=== PATIENT | male | born 1990 | race Caucasian/White ===

== ENCOUNTER 2020-01-11 11:29 | Emergency (ER) | payer SELFPAY ==
[~2020-01-11] VITALS: Ht 167.6 cm; Wt 53.6 kg
[2020-01-11] MEDS ORDERED: IV NORMAL SALINE 1,000ML 1,000 ML IV ONE ×2 (11:45→14:00)
--- NOTE | 2020-01-11 11:47 | EKG ---
[address] [address] Test Date: 2020-01-11 Test Time: 11:34:20 Pat Name: ALDO MATTHEWS Department: Room: Gender: M Editor [employer]: FERNANDA : 1990 Requested By: JEANNE CANALES Order Number: [id number] Reading MD: Measurements Intervals [place] Rate: 73 P: 62 FL: 136 QRS: 57 QRSD: 100 T: 64 QT: 378 QTc: 420 Interpretive Statements SINUS RHYTHM R-S TRANSITION ZONE IN V LEADS DISPLACED TO THE RIGHT INCOMPLETE RIGHT BUNDLE BRANCH BLOCK OTHERWISE NORMAL ECG RI6.02 No previous ECG available for comparison
[2020-01-11 11:51] LABS: BASO % 1 % (0-3); EOS # 0.2 x10^3/uL (0.0-0.7); EOS % 3 % (0-3); HEMATOCRIT 49.5 % (39.0-53.0); LYMPH # 2.1 x10^3/uL (1.0-4.8); LYMPH % 45 % (24-48); MEAN CORPUSCULAR HEMOGLOBIN 31 pg (25-35); MEAN CORPUSCULAR HGB CONC 34 g/dL (31-37); MEAN CORPUSCULAR VOLUME 91 fL (79-100); MONO # 0.5 x10^3/uL (0.0-1.1); MONO % 12 % (0-9); NEUT # 1.8 x10^3uL (1.8-7.7); NEUT % 39 % (31-73); PLATELET COUNT 315 x10^3/uL (140-400); RED BLOOD COUNT 5.46 x10^6/uL (4.30-5.70); RED CELL DISTRIBUTION WIDTH 12.9 % (11.5-14.5); WHITE BLOOD COUNT 4.6 x10^3/uL (4.0-11.0)
--- NOTE | 2020-01-11 11:55 | PHYS DOC ---
Past History Past Medical History: Anxiety, Depression Past Medical History Limited secondary to overdose Past Surgical History: No Surgical History Past Surgical History Limited secondary to overdose Smoking: Cigarettes Alcohol Use: Heavy Drug Use: Heroin, Methamphetamine Social History Limited secondary to overdose General Adult EDM: Chief Complaint: SUICIDAL IDEATION HPI: HPI: Patient is a 29 year old male who presents with overdose symptoms. Reports suicide ideation by taking 4x Xanax bars, 7x Ambien 12.5mg this morning which he reports he took so that he "would go to sleep and not wake up". Reports he used methamphetamines and heroin last night. Reports inpatient psych admit last November for suicide attempt. Ex- called EMS due to patient being lethargic. Patient taking Zoloft and Trazodone. Reports he got the Ambien and Xanax off the street. Denies current alcohol use. Denies other ingestion. History of present illness limited secondary to overdose. Review of Systems: Review of Systems: Constitutional: Denies fever or chills Respiratory: Denies cough. Cardiovascular: Denies chest pain or palpitations GI: Denies abdominal pain, nausea, or vomiting Integument: Denies laceration Neurologic: Denies headache, focal weakness or sensory changes; reports sleepiness Review of systems limited secondary to overdose. Current Medications: Current Meds: Current Medications Medications (Trade) Dose Ordered Sig/[facility] Start Time Stop Time Status Last Admin Dose Admin Sodium Chloride 1,000 ml @ 1,000 mls/hr 1X ONCE 01/11/20 11:45 01/11/20 12:44 Allergies: Allergies: Allergies Coded Allergies Type Severity Reaction Last Updated Verified No Known Drug Allergies 01/11/20 No Physical Exam: PE: Constitutional: Patient in NAD, however, is obtunded. GCS 13. HENT: Normocephalic, atraumatic Eyes: Conjunctiva normal, no discharge Neck: Normal range of motion, no tenderness, supple Lungs & Thorax: No respiratory distress, equal chest rise and fall Abdomen: Soft, no tenderness Skin: Warm, dry, no erythema, no rash Back: No tenderness, no CVA tenderness Extremities: No tenderness, ROM intact, no edema Neurologic: Normal motor function, normal sensory function, no focal deficits noted. Psychologic: Patient obtunded. Current Patient Data: Vital Signs: Vital Signs Date Time Temp Pulse Resp B/P (MAP) Pulse Ox O2 Delivery O2 Flow Rate FiO2 12/2/20 11:32 97.6 77 14 130/96 (107) 98 Room Air EKG: EKG: @1134 sinus rhythm, incomplete right bundle branch block, QRS 100 ms, QT/QTc 378/420 ms. Course & Med Decision Making: Course & Med Decision Making Patient is a 29 year old male who presents with overdose symptoms. Reports suicide ideation by taking 4x 2mg Xanax, 7x 12.5mg Ambien this morning. Reports meth and heroin use last night. Reports psych admit last November for suicide attempt Ex- called EMS due to patient being lethargic. VS stable. Labs obtained and posted to chart. Hypoglycemia noted with initial blood draw. Repeat glucose with improvement. EKG stable. Contacted Poison Control and instructed to provide supportive care. Baseline expected after 12 hours due to Xanax intake. Pertinent Labs and Imaging studies reviewed. (See chart for details) Patient subsequently became agitated and verbal with staff. Reports he was leaving because "he needed to get to work" at [facility]. IV was removed by patient. Patient could not be redirected and walked with steady gait past staff that attempted to prevent patient from leaving. Unable to redirect patient. Police notified that suicidal patient had eloped from ED. Dragon Disclaimer: [employer] Disclaimer: This electronic medical record was generated, in whole or in part, using a voice recognition dictation system. Departure Departure: Impression: Primary Impression: Overdose Qualified Codes: T50.902A - Poisoning by unspecified drugs, medicaments and biological substances, intentional self-harm, initial encounter Additional Impressions: Eloped from emergency department Suicidal intent Hypoglycemia Disposition: AMA/ELOPED/LWBS Condition: GUARDED Referrals: PCP,NO (PCP) Critical Care Time Critical care time was 30 minutes which includes time at bedside, spent in discussion of patient's care with specialists and/or family members, with interpretation of laboratory and/or radiological studies and is exclusive of procedures. JEANNE CANALES DO Jan 11, 2020 11:55
[2020-01-11 12:07] LABS: CALCIUM 8.8 mg/dL (8.5-10.1); GFR 89.6; POTASSIUM 3.1 mmol/L (3.5-5.1)
[2020-01-11 12:19] LABS: ALBUMIN 4.2 g/dL (3.4-5.0); ALBUMIN/GLOBULIN RATIO 1.2 (1.0-1.7); MAGNESIUM 2.4 mg/dL (1.8-2.4); TOTAL BILIRUBIN 0.6 mg/dL (0.2-1.0); TOTAL PROTEIN 7.6 g/dL (6.4-8.2)
[2020-01-11 13:19] LABS: ACETAMIN < 2 mcg/mL (10-30); SALIC < 2.8 mg/dL (2.8-20.0)
[2020-01-11 15:22] VITALS: BP 116/76
[2020-01-11] MEDS ORDERED: POTASSIUM CHLORIDE 20 MEQ TABLET.ER. PO ONE (16:15)
[2020-01-11] MEDS ORDERED: IV DEXTROSE 5 %-0.45 % NACL 1,000 ML IV SCH (16:30)
== END 2020-01-11 17:20 | disposition left against medical advice (07) ==
LOC: ER 11:29
DX: R45.851 Suicidal ideations (principal); T43.621A Poisoning by amphetamines, accidental (unintentional), initial encounter; E16.2 Hypoglycemia, unspecified; F41.9 Anxiety disorder, unspecified; F32.9 Major depressive disorder, single episode, unspecified; F17.210 Nicotine dependence, cigarettes, uncomplicated; F19.90 Other psychoactive substance use, unspecified, uncomplicated; F10.10 Alcohol abuse, uncomplicated; Y92.89 Other specified places as the place of occurrence of the external cause
CPT/HCPCS: 36415; 80053; 80329; 82550; 82947; 83605; 83735; 85025; 85610; 85730; 93005; 99285; G0480; J7030

== ENCOUNTER 2020-09-22 16:58 | Emergency (ER) | payer SELFPAY ==
[~2020-09-22] VITALS: Ht 170.2 cm; Wt 63.6 kg
[2020-09-22 17:26] VITALS: BP 135/95
--- NOTE | 2020-09-22 17:39 | RAD ---
Exam: CT head and maxillofacial without contrast INDICATION: Trauma TECHNIQUE: Sequential axial images through the head and face were obtained without the administration of IV contrast. Exposure: One or more of the following in the visualized dose reduction techniques were utilized for this examination: 1. Automated exposure control 2. Adjustment of the MA and/or KV according to patient size 3. Use of iterative of reconstructive technique Comparisons: None FINDINGS: No focal parenchymal lesion or hemorrhage is identified. There is no midline shift or sulcal effaceme nt. No acute vascular territory infarction is identified. Webb-white distinction is preserved. The ventricular system is within normal limits without compression hydrocephalus. The basal cisterns are well maintained. Face: Extra cranial soft tissue scalp contusion overlying the left posterior parietal region. The visualize d portions of the paranasal sinuses and mastoid air cells are well-pneumatized. No acute fractures. G lobes and orbital contents are normal. IMPRESSION: 1. No acute intracranial abnormality. 2. Extra cranial soft tissue scalp contusion overlying the left posterior parietal region. 3. Negative CT face for acute traumatic injury. Electronically signed by: Leah Xie MD (09/22/2020 5:37 PM) [facility]ENTERFRANCISCO J
[2020-09-22] MEDS ORDERED: DIPH,PERTUSS(ACELL),TET VAC/PF 0.5 ML SYRINGE. VAX IM ONE (19:00)
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
[2020-09-22] MEDS ORDERED: IBUPROFEN 600 MG TABLET. PO ONE (20:30)
[2020-09-22] MEDS ORDERED: HYDROcodone/APAP 5/325MG 1 TAB TABLET PO ONE (20:30)
[2020-09-22] MEDS ORDERED: BACITRACIN ZINC TOPICAL OINT PACKET. TP ONE ×2 (20:30→21:00)
== END 2020-09-22 20:30 | disposition left against medical advice (07) ==
LOC: ER 16:58 → EEVIPCON 16:58 → ER 20:30
DX: S01.01XA Laceration without foreign body of scalp, initial encounter (principal); F41.9 Anxiety disorder, unspecified; F32.9 Major depressive disorder, single episode, unspecified; F17.210 Nicotine dependence, cigarettes, uncomplicated; F15.10 Other stimulant abuse, uncomplicated; Y04.8XXA Assault by other bodily force, initial encounter; Y93.89 Activity, other specified; Y92.89 Other specified places as the place of occurrence of the external cause; Y99.8 Other external cause status
CPT/HCPCS: 12001; 70450; 70486; 72125; 90471; 90715; 99285-25

== ENCOUNTER 2020-09-29 10:50 | Emergency (ER) | payer SELFPAY ==
--- NOTE | 2020-09-29 11:38 | PHYS DOC ---
Past History Past Medical History: Anxiety, Depression (MITCHEL LIZARRAGA APRN) Past Surgical History: No Surgical History (MITCHEL LIZARRAGA APRN) Smoking: Cigarettes Alcohol Use: None Drug Use: Heroin, Methamphetamine (MITCHEL LIZARRAGA APRN) General Adult EDM: Chief Complaint: SUTURE/STAPLE REMOVAL HPI: HPI: Patient is a 30-year-old male being seen in the ER for staple removal. Patient had three shelia placed on September 22 at this facility. Patient has no complaints or concerns at this time. (MITCHEL LIZARRAGA APRN) Review of Systems: Review of Systems: 14 body systems of the review of systems have been reviewed. See HPI for pertinent positive and negative responses, otherwise all other systems are negative, nonpertinent or noncontributory (MITCHEL LIZARRAGA APRN) Allergies: Allergies: Allergies Coded Allergies Type Severity Reaction Last Updated Verified No Known Drug Allergies 01/11/20 No (MITCHEL LIZARRAGA APRN) Physical Exam: PE: Constitutional: Well developed, well nourished, no acute distress, non-toxic appearance. [] HENT: Normocephalic, patient has one staple placed to the top of his head and to in his occipital region of his head, the wounds are well approximated and there are no signs of infection Eyes: PERRL, EOMI, conjunctiva normal, no discharge. [] Neck: Normal range of motion, no tenderness, supple, no stridor. [] Cardiovascular: Normal peripheral perfusion Lungs & Thorax: Normal work of breathing, no tachypnea Skin: Warm, dry, no erythema, no rash. [] Back: Normal range of motion Extremities: No tenderness, no cyanosis, no clubbing, ROM intact, no edema. [] Neurologic: Alert and oriented X 3, normal motor function, normal sensory function, no focal deficits noted. [] Psychologic: Affect normal, judgement normal, mood normal. [] (MITCHEL LIZARRAGA APRN) EKG: EKG: [] (MITCHEL LIZARRAGA APRN) Radiology/Procedures: Radiology/Procedures: [] (MITCHEL LIZARRAGA APRN) Heart Score: C/O Chest Pain: No Risk Factors: Risk Factors: DM, Current or recent (<one month) smoker, HTN, HLP, family history of CAD, obesity. Risk Scores: Score 0 - 3: 2.5% MACE over next 6 weeks - Discharge Home Score 4 - 6: 20.3% MACE over next 6 weeks - Admit for Clinical Observation Score 7 - 10: 72.7% MACE over next 6 weeks - Early Invasive Strategies (MITCHEL LIZARRAGA APRN) Course & Med Decision Making: Course & Med Decision Making Pertinent Labs and Imaging studies reviewed. (See chart for details) Patient is a 22-year-old male being seen for staple removal. Patient has three shelia placed in his head. The wounds are without any signs of infection and they are well approximated. Three shelia removed and patient tolerated procedure. I discussed with patient all findings as well as the need to follow- up with PCP for further evaluation and treatment or return to the ER if any new or worsening symptoms. Strict return precautions were also discussed at length. Patient voiced understanding and agreement with the plan. Patient is hemodyna mically stable at the time of disposition. (MITCHEL LIZARRAGA APRN) Dragon Disclaimer: Dragon Disclaimer: This electronic medical record was generated, in whole or in part, using a voice recognition dictation system. (MITCHEL LIZARRAGA APRN) Attending Co-Sign The patient was seen and interviewed as well as examined at the bedside. The chart was reviewed. The case was discussed. Agree with the plan of care. (WILFRIDO CARMEN DO) Departure Departure: Impression: Primary Impression: Removal of shelia Disposition: 01 HOME / SELF CARE / HOMELESS Condition: GOOD Referrals: PCP,NO (PCP) Patient Instructions: Staple Removal, Care After Additional Instructions: You are seen in the ER for staple removal. Your wounds look clean without any signs of infection and are well approximated. Keep the lacerations clean and dry. Follow-up with your primary care provider as needed. If you have new or worsening concerns please return to the ER. EMERGENCY DEPARTMENT GENERAL DISCHARGE INSTRUCTIONS Thank you for coming to [facility] (ED) today and trusting us with you care. We trust that you had a positivie experience in our Emergency Department. If you wish to speak to the department management, you may call the director at [phone]. YOUR FOLLOW UP INSTRUCTIONS ARE FOLLOWS: 1. Do you have a private Doctor? If you do not have a private doctor, please ask for a resource list of physicians or clinics that may be able to assist you with follow up care. 2. The Emergency Physician has interpreted your x-rays. The X-Ray specialist will also review them. If there is a change in the findings, you will be notified in 48 hours when at all possible. 3. A lab test or culture has been done, your results will be reviewed and you will be notified if you need a change in treatment. ADDITIONAL INSTRUCTIONS AND INFORMATION: 1. Your care today has been supervised by a physician who is specially trained in emergency care. Many problems require more than one evaluation for a complete diagnosis and treatment. We recommend that you schedule your follow up appointment as recommended to ensure complete treatment of you illness or injury. If you are unable to obtain follow up care and continue to have a problem, or if your condition worsens, we recommend that you return to the ED. 2. We are not able to safely determine your condition over the phone nor are we able to give sound medical advice over the phone. For these safety reasons, if you call for medical advice we will ask you to come to the ED for further evaluation. 3. If you have any questions regarding these discharge instructions please call the ED at [phone]. SAFETY INFORMATION: In the interest of safety, wellness, and injury prevention; we encourage you to wear your sealbelt, if you smoke; quite smoking, and we encourage family to use a protective helmet for bicycling and other sporting events that present an increased risk for head injury. IF YOUR SYMPTOMS WORSEN OR NEW SYMPTOMS DEVELOP, OR YOU HAVE CONCERNS ABOUT YOUR CONDITION; OR IF YOUR CONDITION WORSENS WHILE YOU ARE WAITING FOR YOUR FOLLOW UP APPOINTMENT; EITHER CONTACT YOUR PRIMARY CARE DOCTOR, THE PHYSICIAN WHOSE NAME AND NUMBER YOU WERE GIVEN, OR RETURN TO THE ED IMMEDIATELY. MITCHEL LIZARRAGA APRN Sep 29, 2020 11:38 WILFRIDO CARMEN DO Oct 01, 2020 09:56
== END 2020-09-29 11:45 | disposition home or self-care (01) ==
LOC: ER 10:50 → EEVIPCON 10:50 → ER 11:45
DX: S01.01XD Laceration without foreign body of scalp, subsequent encounter (principal); F17.210 Nicotine dependence, cigarettes, uncomplicated; F15.10 Other stimulant abuse, uncomplicated; F41.9 Anxiety disorder, unspecified; F32.9 Major depressive disorder, single episode, unspecified; X58.XXXD Exposure to other specified factors, subsequent encounter
CPT/HCPCS: 99281

== ENCOUNTER 2021-03-08 20:38 | Emergency (ER) | payer SELFPAY ==
[~2021-03-08] VITALS: Ht 162.6 cm; Wt 58.5 kg
[2021-03-08 20:38] VITALS: BP 134/90
[2021-03-08] MEDS ORDERED: SULF1TAB24 PO (21:06)
--- NOTE | 2021-03-08 21:12 | PHYS DOC ---
Past History Past Medical History: Anxiety, Depression (MITCHEL LIZARRAGA APRN) Past Surgical History: No Surgical History (MITCHEL LIZARRAGA APRN) Smoking: Cigarettes Alcohol Use: None Drug Use: Heroin, Methamphetamine (MITCHEL LIZARRAGA APRN) General Adult EDM: Chief Complaint: FACE PROBLEM HPI: HPI: Patient is a 30-year-old male who presents to the emergency department for an abscess to his left jaw that he noticed yesterday. Patient denies any fevers, nausea, vomiting, shortness of breath or difficulty swallowing. Patient's vital signs are stable, he is mildly tachycardic at rate of 1 10-1 15 but severe that he is very nervous today. (MITCHEL LIZARRAGA APRN) Review of Systems: Review of Systems: Constitutional: negative unless reported in HPI Eyes: negative unless reported in HPI HENT: negative unless reported in HPI Respiratory: negative unless reported in HPI Cardiovascular: negative unless reported in HPI GI: negative unless reported in HPI : negative unless reported in HPI Musculoskeletal: negative unless reported in HPI Integument: negative unless reported in HPI Neurologic: negative unless reported in HPI Endocrine: negative unless reported in HPI Lymphatic: negative unless reported in HPI Psychiatric: negative unless reported in HPI (MITCHEL LIZARRAGA APRN) Current Medications: Current Meds: Current Medications Medications (Trade) Dose Ordered Sig/Karon Start Time Stop Time Status Last Admin Dose Admin Acetaminophen (Tylenol) 650 mg 1X ONCE 03/08/21 21:30 03/08/21 21:31 Lidocaine HCl 20 ml 1X ONCE 03/08/21 21:30 03/08/21 21:31 (MITCHEL LIZARRAGA APRN) Allergies: Allergies: Allergies Coded Allergies Type Severity Reaction Last Updated Verified No Known Drug Allergies 01/11/20 No (MITCHEL LIZARRAGA APRN) Physical Exam: PE: Constitutional: Well developed, well nourished, no acute distress, non-toxic appearance. [] HENT: Normocephalic, atraumatic, bilateral external ears normal, oropharynx moist, no oral exudates, centimeter abscess noted to patient's left jaw, nose normal. [] Eyes: PERRL, EOMI, conjunctiva normal, no discharge. [] Neck: Normal range of motion, no tenderness, supple, no stridor. [] Cardiovascular:Heart rate tachycardic rhythm, no murmur [] Lungs & Thorax: Bilateral breath sounds clear to auscultation [] Abdomen: Bowel sounds normal, soft, no tenderness, no masses, no pulsatile masses. [] Skin: Warm, dry, no erythema, no rash. [] Back: Normal range of motion Extremities: No tenderness, no cyanosis, no clubbing, ROM intact, no edema. [] Neurologic: Alert and oriented X 3, normal motor function, normal sensory f unction, no focal deficits noted. [] Psychologic: Affect normal, judgement normal, mood normal. [] (MITCHEL LIZARRAGA APRN) EKG: EKG: [] (MITCHEL LIZARRAGA APRN) Radiology/Procedures: Radiology/Procedures: [] (MITCHEL LIZARRAGA APRN) Heart Score: C/O Chest Pain: N/A Risk Factors: Risk Factors: DM, Current or recent (<one month) smoker, HTN, HLP, family history of CAD, obesity. Risk Scores: Score 0 - 3: 2.5% MACE over next 6 weeks - Discharge Home Score 4 - 6: 20.3% MACE over next 6 weeks - Admit for Clinical Observation Score 7 - 10: 72.7% MACE over next 6 weeks - Early Invasive Strategies (MITCHEL LIZARRAGA APRN) Course & Med Decision Making: Course & Med Decision Making Pertinent Labs and Imaging studies reviewed. (See chart for details) [] Patient resents the emergency department for an abscess to his left jaw. There are some fluctuation palpated. The abscess was cleansed and incision and drainage was performed. Patient tolerated procedure. Dressing placed. Pain treated. His vital signs are stable, he is mildly tachycardic with a heart rate of 1 10-1 14 the patient states that he is very nervous. Patient will be discharged home with an antibiotic. He was educated on wound care. I discussed with patient all findings and diagnostic testing as well as the need to follow- up with PCP for further evaluation and treatment or return to the ER if any new or worsening symptoms. Strict return precautions were also discussed at length. Patient voiced understanding and agreement with the plan. Patient is hemodynamically stable at the time of disposition. (MITCHEL LIZARRAGA APRN) Dragon Disclaimer: Dragon Disclaimer: This electronic medical record was generated, in whole or in part, using a voice recognition dictation system. (MITCHEL LIZARRAGA APRN) Incision and Drainage Indication: Abscess left jaw Procedure: The patient was positioned appropriately and the skin over the incision site was cleansed with Betadine. Local anesthesia was 1% lidocaine. An incision was then made over the apex of the abscess and moderate amount of pu rulent material was expressed. Loculations were removed. The patients tetanus status is uptodate The patient tolerated the procedure Complications: None (MITCHEL LIZARRAGA APRN) Departure Departure: Impression: Primary Impression: Abscess Disposition: HOME / SELF CARE / HOMELESS Condition: GOOD Referrals: PCP,NO (PCP) Patient Instructions: Abscess Additional Instructions: You are seen in the emergency department today for an abscess to your left jaw. This was drained in the emergency department. Keep a dressing in place and change it twice a day and when soiled. Take Tylenol and ibuprofen for your pain. You are being discharged home with an antibiotic start and finish it completely. You can continue to apply warm moist packs to the area. Monitor for any worsening of your infection which would include worsening of the redness, increased drainage, increased pain or increased swelling. Follow-up with your primary care provider on Thursday regarding your ER visit. Return to the emergency department if you notice that your infection has worsened or you develop high fevers refractory to treatment or intractable nausea or vomiting. Scripts Sulfamethoxazole/Trimethoprim (BACTRIM DS TABLET) 1 Each Tablet 1 TAB PO BID for infection for 7 Days, #14 TAB 0 Refills Prov: MITCHEL LIZARRAGA APRN 03/08/21 Attending Signature Attending Signature I have participated in the care of this patient and I have reviewed and agree with all pertinent clinical information above including history, exam, and recommendations. (CHIKI MIR MD) Dragon Disclaimer This chart was dictated in whole or in part using Voice Recognition software in a busy, high-work load, and often noisy Emergency Department environment. It may contain unintended and wholly unrecognized errors or omissions. (CHIKI MIR MD) MITCHEL LIZARRAGA APRN Mar 08, 2021 21:12 CHIKI MIR MD Mar 10, 2021 20:18
[2021-03-08] MEDS ORDERED: ACETAMINOPHEN 325 MG TABLET PO ONE (21:30)
[2021-03-08] MEDS ORDERED: LIDOCAINE 1% Multi-Dose 20 ML VIAL. IJ ONE (21:30)
== END 2021-03-08 21:30 | disposition home or self-care (01) ==
LOC: ER 20:38
DX: M27.2 Inflammatory conditions of jaws (principal); F17.210 Nicotine dependence, cigarettes, uncomplicated
CPT/HCPCS: 10060; 99283